=== PATIENT | female | born 1945 | race Caucasian/White ===

== ENCOUNTER 2021-06-15 10:07 | Emergency (ER) | payer OTHER, MEDICARE ==
[~2021-06-15] VITALS: Ht 167.6 cm; Wt 103.0 kg
[2021-06-15] MEDS ORDERED: AMOCLA875 PO (10:34)
[2021-06-15 11:30] LABS: BASOPHILS ABSOLUTE AUTO 0.04 K/mm3 (0.00-0.23); BASOPHILS PERCENT AUTO 1 % (0-2); EOSINOPHILS ABSOLUTE AUTO 0.14 K/mm3 (0.00-0.68); EOSINOPHILS PERCENT AUTO 2 % (0-6); Hematocrit 36.3 % (33.0-51.0); Hemoglobin 11.3 g/dL (11.5-16.0); IMMATURE GRAN ABSOLUTE AUTO 0.05 K/mm3 (0.00-0.10); IMMATURE GRAN PERCENT AUTO 1 % (0-1); LYMPHOCYTES ABSOLUTE AUTO 0.73 K/mm3 (0.84-5.20); LYMPHOCYTES PERCENT AUTO 10 % (21-46); MONOCYTES ABSOLUTE AUTO 0.83 K/mm3 (0.16-1.47); MONOCYTES PERCENT AUTO 11 % (4-13); Mean Corpuscular HGB 29.7 pg (26.0-34.0); Mean Corpuscular HGB Conc 31.1 g/dL (31.5-36.5); Mean Corpuscular Volume 95 fL (80-100); Mean Platelet Volume 9.8 fL (9.1-12.4); NEUTROPHILS ABSOLUTE AUTO 5.63 K/mm3 (1.96-9.15); NEUTROPHILS PERCENT AUTO 76 % (41-73); Platelet Count 292 K/mm3 (150-400); RDW Coefficient Variation 16.2 % (11.7-14.2); Red Blood Cell Count 3.81 M/mm3 (3.80-5.20); White Blood Cell Count 7.42 K/mm3 (4.00-11.30)
[2021-06-15 11:43] LABS: International Normalized Ratio 1.55; Prothrombin Time Results 15.8 Sec (9.7-11.5)
[2021-06-15 11:46] LABS: Bun/Creatinine Ratio 23.2 (12.0-20.0); Calcium, Blood 9.4 mg/dL (8.5-10.1); Creatinine, Blood 2.07 mg/dL (0.40-1.00); Potassium, Blood 4.1 mmol/L (3.5-5.5)
[2021-06-15 11:57] LABS: Influenza A, PCR NEGATIVE (NEGATIVE); Influenza B, PCR NEGATIVE (NEGATIVE); Resp Syncytial Virus, PCR NEGATIVE (NEGATIVE); SARS-Cov-2 (COVID-19) PCR, MMC NEGATIVE (NEGATIVE)
[2021-06-15] MEDS ORDERED: LIPITOR80 MG PO (14:53)
[2021-06-15] MEDS ORDERED: ALLOPURINOL100 M1 PO (14:53)
[2021-06-15] MEDS ORDERED: BASAGLAR K100 UNIT/3 SC (14:53)
[2021-06-15] MEDS ORDERED: METOPROLOL TART25 MG (14:54)
[2021-06-15] MEDS ORDERED: LIDOTOR 2.5%-21 EACH (14:54)
[2021-06-15] MEDS ORDERED: JANTOVEN1 M2 PO (14:54)
[2021-06-15] MEDS ORDERED: MIDODRINE HCL PO (14:54)
--- NOTE | 2021-06-15 16:38 | NUR ---
PT TO RECOVERY ROOM FROM BREAKFAST HOST, PT DENNIS CALLED AND UPDATED ON PROCEDURE. PT STILL SLEEPY FROM SEDATION. WILL MONITOR.
--- NOTE | 2021-06-15 17:25 | NUR ---
OLD PERMCATH SITE BLEEDING, LIGHT PRESSURE HELD FOR [address] MIN[address] IN [address] DR CURIEL AWARE. PT REQUESTING TO GO HOME. PT ALERT AND STEADY ON FEET, TO BATHROOM. PT DRESSED SELF. DISCHARGE INSTRUCTIONS REVIEWED WITH PT AND VERBALIZES UNDERSTANDING. SALINE LOCK REMOVED WITH CATHETER INTACT. PT TO PRIVATE VEHICLE PER W/C.
== END 2021-06-15 15:24 | disposition home or self-care (01) ==
LOC: ER 10:07
PROVIDERS: Physician Assistant
DX: Z01.812 Encounter for preprocedural laboratory examination (principal); T14.8XXA Other injury of unspecified body region, initial encounter; Z20.822 Contact with and (suspected) exposure to COVID-19; Z79.899 Other long term (current) drug therapy; W54.0XXA Bitten by dog, initial encounter
CPT/HCPCS: 0241U; 76937; 80048; 85025; 85610; 99152; 99153; 99282; C1750; C1769; C1894; J1644; J2250; J3010; J7050